=== PATIENT | female | born 1950 ===

== ENCOUNTER 2018-02-23 14:23 | Emergency (ER) | payer OTHER ==
[~2018-02-23] VITALS: Ht 152.4 cm; Wt 68.0 kg
== END 2018-02-23 17:48 | disposition home or self-care (01) ==
LOC: ER 14:23
DX: S93.492A Sprain of other ligament of left ankle, initial encounter (principal); S90.02XA Contusion of left ankle, initial encounter; W18.09XA Striking against other object with subsequent fall, initial encounter; Y93.89 Activity, other specified; Y92.59 Other trade areas as the place of occurrence of the external cause; Y99.8 Other external cause status